=== PATIENT | male | born 1935 ===

== ENCOUNTER 2018-09-12 06:14 | Emergency (ER) | payer OTHER, MEDICARE ==
--- NOTE | 2018-09-12 07:29 | ER ---
Nurse's Notes [facility] Name: Mark Sadler JR. Age: 82 yrs Sex: Male : 1935 Arrival Date: 09/12/2018 Time: 06:19 Bed 17 Private MD: Diagnosis: Irritability and anger Presentation: 09/12 06:20 Presenting complaint: EMS states: Pt was sent from [facility] for aggressive behavior tl2 toward staff. Pt states that he was being surrounded by staff and he was defending himself with a ballpoint pen and wasn't trying to hurt anyone. Pt is calm and cooperative in triage AOx4. Transition of care: patient was received from another setting of care (long-term care facility), [facility]. Onset of symptoms was September 12, 2018 at 06:00. Risk Assessment: Do you want to hurt yourself or someone else? Patient reports no desire to harm self or others. Initial Sepsis Screen: Does the patient meet any 2 criteria? HR > 90 bpm. Does the patient have a suspected source of infection? No. Patient's initial sepsis screen is negative. Care prior to arrival: None. 06:20 Method Of Arrival: EMS: [facility] tl2 06:20 Acuity: NOA 4 tl2 Triage Assessment: 06:28 General: Appears in no apparent distress. comfortable, Behavior is calm, cooperative, cc3 appropriate for age. Pain: Denies pain. Historical: - Allergies: 06:25 No Known Allergies; cc3 - PMHx: 06:23 Dementia; tl2 - PSHx: 06:25 None; cc3 - Immunization history:: Adult Immunizations up to date. - Social history:: Smoking status: Patient/guardian denies using tobacco. - Ebola Screening: : No symptoms or risks identified at this time. Screenin:23 Abuse screen: Denies threats or abuse. Nutritional screening: No deficits noted. tl2 Tuberculosis screening: No symptoms or risk factors identified. Fall Risk Gait- Impaired (20 pts.). Assessment: 06:28 General: Appears in no apparent distress. comfortable, Behavior is calm, cooperative, cc3 appropriate for age. Pain: Denies pain. Neuro: Level of Consciousness is awake, alert, obeys commands, Oriented to person, place, time, situation, Appropriate for age. Cardiovascular: Denies chest pain, Capillary refill < 3 seconds Patient's skin is warm and dry. Respiratory: Airway is patent Respiratory effort is even, unlabored, Respiratory pattern is regular, symmetrical. GI: Abdomen is round. : No signs and/or symptoms were reported regarding the genitourinary system. EENT: No signs and/or symptoms were reported regarding the EENT system. Derm: Skin is intact, is healthy with good turgor, Skin is pink, warm \T\ dry. normal. Musculoskeletal: Circulation, motion, and sensation intact. Range of motion: intact in all extremities. 07:00 Reassessment: spoke to Taran at [facility] notified her per Isidoro HARDEN that pt bb is cooperative and non-aggressive at this time he was okay to be discharged back to [facility]. Transportation back will not be available until 0800. 07:21 Reassessment: Patient appears in no apparent distress at this time. Patient and/or tw2 family updated on plan of care and expected duration. Pain level reassessed. pt asking if we will call at this time. 08:25 Reassessment: per [facility] the RN is on the way to pick out hand the pt at this tw2 time. 08:37 Reassessment: Patient appears in no apparent distress at this time. Patient and/or tw2 family updated on plan of care and expected duration. Pain level reassessed. 08:47 Reassessment: Patient appears in no apparent distress at this time. Patient and/or tw2 family updated on plan of care and expected duration. Pain level reassessed. Vital Signs: 06:21 Weight 82.1 kg (R); Height 6 ft. 0 in. (182.88 cm) (R); cc3 06:24 BP 151 / 93; Pulse 105; Resp 18; Temp 98.4; Pulse Ox 100% on R/A; tl2 07:20 BP 136 / 83; Pulse 96; Resp 17; Pulse Ox 99% on R/A; tw2 08:37 BP 129 / 83; Pulse 85; Resp 17; Pulse Ox 96% on R/A; tw2 06:21 Body Mass Index 24.55 (82.10 kg, 182.88 cm) cc3 ED Course: 06:19 Patient arrived in ED. tl2 06:19 Isidoro Bowles PA is PHCP. jr8 06:19 Petar Espinosa MD is Attending Physician. jr8 06:22 Triage completed. tl2 06:23 Arm band placed on right wrist. tl2 06:23 Patient has correct armband on for positive identification. Bed in low position. Call tl2 light in reach. Side rails up X2. 07:00 Report given to ELBA Jean. cc3 07:20 Miranda Guevara RN is Primary Nurse. tw2 07:22 Awaiting transportation. tw2 08:47 No provider procedures requiring assistance completed. Patient did not have IV access tw2 during this emergency room visit. Administered Medications: No medications were administered Outcome: 07:27 Discharge ordered by . jr8 08:47 Discharged to half-way. Report called to ELBA Rosario from [facility] tw2 08:47 Condition: stable 08:47 Discharge instructions given to patient, aeronautical design engineer, Instructed on discharge instructions, follow up and referral plans. Demonstrated understanding of instructions, follow-up care. 08:48 Patient left the ED. tw2 Signatures: Tish Kee RN RN Isidoro Fleming PA PA jr8 Miranda Guevara, RN RN tw2 Eugenie Shearer RN RN tl2 Amalia Stacy cc3
--- NOTE | 2018-09-12 07:29 | EDPHYS ---
Physician Documentation [facility] Name: Mark Sadler JR. Age: 82 yrs Sex: Male : 1935 Arrival Date: 09/12/2018 Time: 06:19 Bed 17 Private MD: ED Physician Petar Espinosa HPI: 09/12 06:37 This 82 yrs old Unknown Male presents to ER via EMS with complaints of Sent from [facility] for aggressive behavior. 06:37 Onset: The symptoms/episode began/occurred acutely, today. Associated signs and jr8 symptoms: The patient has no apparent associated signs or symptoms. Severity of symptoms: At their worst the symptoms were mild in the emergency department the symptoms have resolved. It is unknown whether or not the patient has had similar symptoms in the past. It is unknown whether or not the patient has recently seen a physician. Patient was transported via EMS for aggressive behavior toward senior care staff. Patient does not recall event now. Patient with dementia history. Alert to person only which is baseline. Patient very cooperative and non aggressive at this point . Historical: - Allergies: 06:25 No Known Allergies; cc3 - PMHx: 06:23 Dementia; tl2 - PSHx: 06:25 None; cc3 - Immunization history:: Adult Immunizations up to date. - Social history:: Smoking status: Patient/guardian denies using tobacco. - Ebola Screening: : No symptoms or risks identified at this time. ROS: 06:37 Eyes: Negative for injury, pain, redness, and discharge, ENT: Negative for injury, jr8 pain, and discharge, Neck: Negative for injury, pain, and swelling, Cardiovascular: Negative for chest pain, palpitations, and edema, Respiratory: Negative for shortness of breath, cough, wheezing, and pleuritic chest pain, Abdomen/GI: Negative for abdominal pain, nausea, vomiting, diarrhea, and constipation, Back: Negative for injury and pain, MS/Extremity: Negative for injury and deformity, Skin: Negative for injury, rash, and discoloration, Neuro: Negative for headache, weakness, numbness, tingling, and seizure. Exam: 06:37 Eyes: Pupils equal round and reactive to light, extra-ocular motions intact. Lids and jr8 lashes normal. Conjunctiva and sclera are non-icteric and not injected. Cornea within normal limits. Periorbital areas with no swelling, redness, or edema. ENT: Nares patent. No nasal discharge, no septal abnormalities noted. Tympanic membranes are normal and external auditory canals are clear. Oropharynx with no redness, swelling, or masses, exudates, or evidence of obstruction, uvula midline. Mucous membranes moist. Neck: Trachea midline, no thyromegaly or masses palpated, and no cervical lymphadenopathy. Supple, full range of motion without nuchal rigidity, or vertebral point tenderness. No Meningismus. Cardiovascular: Regular rate and rhythm with a normal S1 and S2. No gallops, murmurs, or rubs. Normal PMI, no JVD. No pulse deficits. Respiratory: Lungs have equal breath sounds bilaterally, clear to auscultation and percussion. No rales, rhonchi or wheezes noted. No increased work of breathing, no retractions or nasal flaring. Abdomen/GI: Soft, non-tender, with normal bowel sounds. No distension or tympany. No guarding or rebound. No evidence of tenderness throughout. Back: No spinal tenderness. No costovertebral tenderness. Full range of motion. Skin: Warm, dry with normal turgor. Normal color with no rashes, no lesions, and no evidence of cellulitis. MS/ Extremity: Pulses equal, no cyanosis. Neurovascular intact. Full, normal range of motion. Neuro: Awake and alert, GCS 15, oriented to person. Cranial nerves II-XII grossly intact. Motor strength 5/5 in all extremities. Sensory grossly intact. Cerebellar exam normal. 06:37 Psych: Behavior/mood is pleasant, cooperative, Affect is calm, Oriented to person, Patient has no thoughts/intents to harm self or others. Vital Signs: 06:21 Weight 82.1 kg (R); Height 6 ft. 0 in. (182.88 cm) (R); cc3 06:24 BP 151 / 93; Pulse 105; Resp 18; Temp 98.4; Pulse Ox 100% on R/A; tl2 07:20 BP 136 / 83; Pulse 96; Resp 17; Pulse Ox 99% on R/A; tw2 08:37 BP 129 / 83; Pulse 85; Resp 17; Pulse Ox 96% on R/A; tw2 06:21 Body Mass Index 24.55 (82.10 kg, 182.88 cm) cc3 MDM: 06:19 Patient medically screened. jr8 07:26 Data reviewed: vital signs, nurses notes, and as a result, I will discharge patient. jr8 Data interpreted: Pulse oximetry: on room air is 99 %. Interpretation: normal. Counseling: I had a detailed discussion with the patient and/or guardian regarding: the historical points, exam findings, and any diagnostic results supporting the discharge/admit diagnosis, the need for outpatient follow up, a family practitioner, to return to the emergency department if symptoms worsen or persist or if there are any questions or concerns that arise at home. Administered Medications: No medications were administered Disposition: 19:05 Co-signature as Attending Physician, Petar Espinosa MD. brian Disposition: 09/12/18 07:27 Discharged to Home. Impression: Irritability and anger. - Condition is Stable. - Discharge Instructions: Tips for Managing Your Anger. - Medication Reconciliation Form, Thank You Letter, Antibiotic Education, Prescription Opioid Use form. - Follow up: Private Physician; When: 5 - 6 days; Reason: Recheck today's complaints, Continuance of care, Re-evaluation by your physician. - Problem is new. - Symptoms have improved. Signatures: Petar Espinosa MD MD pkl Isidoro Bowles PA PA jr8 Miranda Guevara RN RN tw2 Eugenie Shearer RN RN tl2 Amalia Stacy cc3 Corrections: (The following items were deleted from the chart) 08:48 07:27 09/12/2018 07:27 Discharged to Home. Impression: Irritability and anger. tw2 Condition is Stable. Forms are Medication Reconciliation Form, Thank You Letter, Antibiotic Education, Prescription Opioid Use. Follow up: Private Physician; When: 5 - 6 days; Reason: Recheck today's complaints, Continuance of care, Re-evaluation by your physician. Problem is new. Symptoms have improved. jr8
== END 2018-09-12 08:48 | disposition home or self-care (01) ==
LOC: ER 06:14
DX: R45.4 Irritability and anger (principal)
CPT/HCPCS: 99283